=== PATIENT | female | born 1970 | race Caucasian/White ===

== ENCOUNTER 2017-04-07 17:22 | Emergency (ER) | payer OTHER ==
--- NOTE | 2017-04-07 17:32 | PDOC ---
Rapid Medical Evaluation Time Seen by Provider: 04/07/17 17:29 Medical Evaluation: Allergies Allergy/AdvReac Type Severity Reaction Status Date / Time oxycodone HCl [From Percocet] Allergy Difficulty Verified 08/24/13 19:19 Breathing 04/07/17 17:29 I have performed a brief in-person evaluation of this patient. The patient presents with a chief complaint of: 2 days of R ear/headache, + nausea, denies N/D Pertinent physical exam findings: NA I have ordered the following: nothing The patient will proceed to the ED for further evaluation. Discharge Disposition - Diagnosis Right ear pain - Referrals - Patient Instructions - Post Discharge Activity
[2017-04-07 17:33] VITALS: BP 110/74; PULSE 86; TEMP 97.7; BMI 30.8
[2017-04-07] MEDS ORDERED: IBUPROFEN 600 MG TABLET (FP) PO ONE ×2 (18:20→18:23)
[2017-04-07] MEDS ORDERED: NEOMYCIN/POLYMYXN/HC OTIC SUSPENSION 10 ML BOTTLE AS ONE (18:20)
[2017-04-07] MEDS ORDERED: NEOMYCIN/POLYMYXN/HC OTIC SOLUTION 10 ML BOTTLE ONE (18:23)
--- NOTE | 2017-04-07 18:32 | PDOC ---
History of Present Illness - General Chief Complaint: Ear Problem Stated Complaint: EAR PROBLEM Time Seen by Provider: 04/07/17 17:29 History Source: Patient Exam Limitations: No Limitations - History of Present Illness Initial Comments: 04/07/17 18:21 C/O PAIN AND SWELLING TO RIGHT ear 2 days. Denies drainage from ear, but feels is swollen and has some mild pain tender lymphadenopathy to that side. States is spreading to the other side now. No History of infection or URI. 04/07/17 18:50 Timing/Duration: unsure Severity: mild, moderate Modifying Factors: improves with: cold therapy, medication Associated Symptoms: reports: denies symptoms, cough, fever/chills Past History - Travel Traveled outside of the country in the last 30 days: No Close contact w/someone who was outside of country & ill: No - Past Medical History Allergies/Adverse Reactions: Allergies Allergy/AdvReac Type Severity Reaction Status Date / Time oxycodone HCl [From Percocet] Allergy Difficulty Verified 04/07/17 17:29 Breathing Home Medications: Ambulatory Orders No Home Medications 0 dose .ROUTE UTDICT 08/24/13 COPD: No - Suicide/Smoking/Psychosocial Hx Smoking Status: No Smoking History: Never smoked Number of Cigarettes Smoked Daily: 0 Review of Systems - Review of Systems Able to Perform ROS?: Yes Is the patient limited Tunisian proficient: Yes Constitutional: Yes: Symptoms Reported, See HPI, Loss of Appetite, Malaise. No : Fever HEENTM: Yes: Symptoms Reported, See HPI, Ear Pain, Nose Congestion Respiratory: Yes: See HPI, Cough. No: Symptoms reported Musculoskeletal: No: Symptoms Reported All Other Systems: Reviewed and Negative *Physical Exam - Vital Signs Last Vital Signs Temp Pulse Resp BP Pulse Ox 97.7 F 86 19 110/74 98 04/07/17 17:29 04/07/17 17:29 04/07/17 17:29 04/07/17 17:29 04/07/17 17:29 - Physical Exam General Appearance: Yes: Nourished, Appropriately Dressed, Apparent Distress HEENT: positive: DESTINEY, Pharynx Normal, Nasal Congestion, Rhinorrhea, Other ( swelling, erythema, but TM appears to be intact with good landmarks). negative : Normal ENT Inspection, TMs Normal Neck: positive: Tender, Supple, Lymphadenopathy (R), Lymphadenopathy (L) Respiratory/Chest: positive: Lungs Clear. negative: Normal Breath Sounds, Respiratory Distress Medical Decision Making - Medical Decision Making 04/07/17 18:52 Otitis externa, will treat with Cortisporin and NSAIDs *DC/Admit/Observation/Transfer Diagnosis at time of Disposition: Otitis externa Qualifiers: Otitis externa type: unspecified type Chronicity: acute Laterality: right Qualified Code(s): H60.501 - Unspecified acute noninfective otitis externa, right ear - Discharge Dispostion Disposition: HOME Condition at time of disposition: Stable Admit: No - Referrals Referrals: Cesar Negro MD [Primary Care Provider] - - Patient Instructions Printed Discharge Instructions: DI for Otitis Externa Additional Instructions: Rest, lots of fluids; water, teas, soups Hot wet soaks to ear/hot packs may help relieve some pain May use [id number] anesthetic drops to ears to help relieve some pain Avoid getting water in ear, may use alcohol drops to help dry up any water retained in ears Severe using earplugs when swimming to avoid any water retention Continue ibuprofen or Tylenol for pain and fevers Cortisporin otic solution 3-5 drops 3 times a day for 5 days followup with private physician / ENT doctor in 2-3 days Return to emergency department or see private physician immediately for swelling , redness, from ears, or fevers, - Post Discharge Activity Forms/Work/School Notes: Back to Work
== END 2017-04-07 18:49 | disposition home or self-care (01) ==
LOC: JERFT 17:22
DX: H66.91 Otitis media, unspecified, right ear (principal); H60.91 Unspecified otitis externa, right ear
CPT/HCPCS: 99281-25

== ENCOUNTER 2017-04-08 17:00 | Emergency (ER) | payer OTHER ==
[2017-04-08 17:11] VITALS: BP 115/67; PULSE 82; TEMP 98.6; BMI 33.6
--- NOTE | 2017-04-08 17:12 | PDOC ---
Rapid Medical Evaluation Chief Complaint: Ear Problem Time Seen by Provider: 04/08/17 17:11 Medical Evaluation: Allergies Allergy/AdvReac Type Severity Reaction Status Date / Time oxycodone HCl [From Percocet] Allergy Difficulty Verified 04/07/17 17:29 Breathing 04/08/17 17:11 Pt c/o: worsening right ear pain, no fever, decreased hearing Pt on brief exam: vss Pt ordered for : none Pt to proceed to the ED Discharge Disposition - Diagnosis Right ear pain - Referrals - Patient Instructions - Post Discharge Activity
--- NOTE | 2017-04-08 18:48 | PDOC ---
History of Present Illness - General Chief Complaint: Ear Problem Stated Complaint: EAR PROBLEM Time Seen by Provider: 04/08/17 17:11 History Source: Patient Exam Limitations: No Limitations - History of Present Illness Initial Comments: 04/08/17 18:43 CHIEF COMPLAINT: Right Ear pain HISTORY OF PRESENT ILLNESS: This is an otherwise healthy, 46-year-old female. Presents emergency Department with right ear pain, was seen in the emergency room yesterday diagnosed with acute otitis externa and given Cortisporin and NSAIDs for pain, patient used them once and reports increased pain. Now with throat pain. Did not follow-up with ENT. Denies fever. REVIEW OF SYSTEMS: GENERAL/CONSTITUTIONAL: No fever or chills. No weakness. No weight change. HEAD, EYES, EARS, NOSE AND THROAT: Right ear pain and swelling. NEUROLOGIC: Intermittent headache. No vertigo, loss of consciousness, or loss of sensation. ALLERGIC/IMMUNOLOGIC: No hives or skin allergy. No latex allergy. PHYSICAL EXAM: GENERAL: The patient is awake, alert, and fully oriented, in no acute distress. HEAD: Normal with no signs of trauma. ENT: Left auditory canal and TM are normal. Right auditory canal pale with erythema and bulging canal. No Tenderness over mastoid. Pupils equal, round and reactive to light, extraocular movements intact, sclera anicteric, conjunctiva clear. Neck supple. No adenopathy. NEUROLOGICAL: Normal speech, normal gait. CN II-XII grossly intact. PSYCH: Normal mood, normal affect. SKIN: Warm, Dry, normal turgor, no rashes or lesions noted. 04/08/17 18:43 Past History - Past Medical History Allergies/Adverse Reactions: Allergies Allergy/AdvReac Type Severity Reaction Status Date / Time oxycodone HCl [From Percocet] Allergy Difficulty Verified 04/08/17 17:11 Breathing Home Medications: Ambulatory Orders No Home Medications 0 dose .ROUTE UTDICT 08/24/13 Amox-Tr/K Cl [Augmentin - 875Mg Tablet] 1 tab PO BID #14 tablet 04/08/17 COPD: No - Suicide/Smoking/Psychosocial Hx Smoking Status: No Smoking History: Never smoked Number of Cigarettes Smoked Daily: 0 *Physical Exam - Vital Signs Last Vital Signs Temp Pulse Resp BP Pulse Ox 98.6 F 82 18 115/67 99 04/08/17 17:09 04/08/17 17:09 04/08/17 17:09 04/08/17 17:09 04/08/17 17:09 Medical Decision Making - Medical Decision Making 04/08/17 18:45 A/P: Patient with an acute otitis media and externa. We'll DC patient on Augmentin, follow up with ENT. *DC/Admit/Observation/Transfer Diagnosis at time of Disposition: Right ear pain, Otitis media - Discharge Dispostion Disposition: HOME Condition at time of disposition: Stable Admit: No - Prescriptions Prescriptions: Amox-Tr/K Cl [Augmentin - 875Mg Tablet] 1 tab PO BID #14 tablet - Referrals Referrals: Fahad Elizabeth MD [Staff Physician] - - Patient Instructions Additional Instructions: continue current antibiotic drop, will add antibiotic pill. Please take Motrin as needed for pain. Follow-up with your nose and throat doctor. continuar la cada actual de antibiticos, agregar pldora antibitica. Por favor tome Motrin cuando sea necesario para el dolor. Seguimiento con hand mdico de nariz y garganta - Post Discharge Activity Forms/Work/School Notes: Back to Work
== END 2017-04-08 18:50 | disposition home or self-care (01) ==
LOC: JERFT 17:00
DX: H66.91 Otitis media, unspecified, right ear (principal); H60.8X1 Other otitis externa, right ear
CPT/HCPCS: 99281-25